=== PATIENT | female | born 1985 | race Caucasian/White ===

== ENCOUNTER 2020-04-15 16:16 | Observation (INO) ==
[2020-04-15] MEDS ORDERED: Ondansetron ODT 4 MG TAB.RAPDIS SL PRN (17:00)
[2020-04-15] MEDS ORDERED: Naloxone 0.4 MG/ML INJ IVP PRN (17:00)
[2020-04-15] MEDS ORDERED: Acetaminophen 325 MG TABLET PO PRN (18:02)
[2020-04-15] MEDS: 0.9 % Sodium Chloride 1,000 ML IVC SCH (18:54)
[2020-04-15 20:30] LABS: Basophils % 0.5 %; Eosinophils # 0.2 K/mcL (0.0-0.6); Eosinophils % 2.9 %; Hematocrit 35.9 % (35.3-44.9); Hemoglobin 11.6 g/dL (11.5-15.4); Immature Granulocytes % 0.3 % (0-4); Lymphocytes # 2.3 K/mcL (0.6-4.6); Lymphocytes % 28.8 %; Mean Corpuscular HGB Conc 32.3 g/dL (31.6-35.5); Mean Corpuscular Hemoglobin 28.5 pg (28.0-33.3); Mean Corpuscular Volume 88.2 fL (83.0-100.0); Mean Platelet Volume 10.3 fL (9.4-12.4); Monocytes # 0.6 K/mcL (0.0-1.3); Monocytes % 7.7 %; Neutrophils # 4.7 K/mcL (1.6-8.9); Platelet Count 270 K/mcL (140-400); Red Blood Count 4.07 M/mcL (3.82-4.97); Segmented Neutrophils % 59.8 %; White Blood Count 7.9 K/mcL (4.3-11.1)
[2020-04-15 21:13] LABS: Adenovirus Not Detected (Not Detect); Bordetella Pertussis Not Detected (Not Detect); Chlamydophila pneumoniae Not Detected (Not Detect); Coronavirus 229E Not Detected (Not Detect); Coronavirus HKU1 Not Detected (Not Detect); Coronavirus NL63 Not Detected (Not Detect); Coronavirus OC43 Not Detected (Not Detect); Human Metapneumovirus Not Detected (Not Detect); Human Rhinovirus/Enterovirus Not Detected (Not Detect); Influenza A Subtype 2009 H1 Not Detected (Not Detect); Influenza B Not Detected (Not Detect); Mycoplasma pneumoniae Not Detected (Not Detect); Parainfluenza Virus 1 Not Detected (Not Detect); Parainfluenza Virus 2 Not Detected (Not Detect); Parainfluenza Virus 3 Not Detected (Not Detect); Parainfluenza Virus 4 Not Detected (Not Detect); Respiratory Syncytial Virus Not Detected (Not Detect); SARS-CoV-2 Not Detected (Not Detect)
[2020-04-15] MEDS: Piperacillin/Tazobactam 3.375 GM in 0.9 % Sodium Chloride Mini Bag 100 ML IVPB SCH (23:47)
[2020-04-16] MEDS: 0.9 % Sodium Chloride 1,000 ML IVC SCH ×2 (04:29→07:00)
[2020-04-16] MEDS ORDERED: Loratadine 10 MG TABLET PO SCH (09:00)
[2020-04-16] MEDS: Piperacillin/Tazobactam 3.375 GM in 0.9 % Sodium Chloride Mini Bag 100 ML IVPB SCH ×2 (10:02→16:25)
[2020-04-16] MEDS ORDERED: polyethylene glycoL 3350 17 GM POWD.PACK PO SCH (11:00)
[2020-04-16] MEDS ORDERED: *HR* Heparin 5,000 UNIT/ML VIAL SQ SCH (11:00)
[2020-04-16] MEDS ORDERED: Ondansetron 4 MG/2 ML VIAL IVP PRN (16:48)
[2020-04-16] MEDS ORDERED: *HR* FentaNYL (PF) 100 MCG/2 ML VIAL IVP PRN (16:48)
[2020-04-16] MEDS ORDERED: Naloxone 0.4 MG/ML INJ IVP PRN ×2 (16:48→19:18)
[2020-04-16] MEDS ORDERED: *HR* HYDROmorphone PF 0.5 MG/0.5 ML SYRINGE IVP PRN (16:48)
[2020-04-16] MEDS ORDERED: *HR* Midazolam HCl 2 MG/2 ML VIAL ONE (17:11)
[2020-04-16] MEDS ORDERED: *HR* Rocuronium Bromide 50 MG/5 ML VIAL ONE (17:11)
[2020-04-16] MEDS ORDERED: Lidocaine -MPF 4% 5 ML AMPUL ONE (17:11)
[2020-04-16] MEDS ORDERED: *HR* FentaNYL (PF) 100 MCG/2 ML VIAL ONE ×2 (17:11→17:55)
[2020-04-16] MEDS ORDERED: *HR* Succinylcholine 200 MG/10 ML VIAL IVP ONE (17:11)
[2020-04-16] MEDS ORDERED: Lidocaine -MPF 2% 2 ML VIAL ONE ×2 (17:11→17:16)
[2020-04-16] MEDS ORDERED: *HR* Propofol 200 MG/20 ML VIAL IVP ONE (17:11)
[2020-04-16] MEDS ORDERED: Famotidine 20 MG/2 ML VIAL ONE (17:14)
[2020-04-16] MEDS ORDERED: Acetaminophen IV 1,000 MG/100 ML BAG IVPB ONE (17:14)
[2020-04-16] MEDS ORDERED: Dexamethasone 4 MG/ML VIAL ONE (17:33)
[2020-04-16] MEDS ORDERED: Ondansetron 4 MG/2 ML VIAL ONE (17:33)
[2020-04-16] MEDS ORDERED: EPHEDrine 50 MG/ML VIAL ONE (18:09)
[2020-04-16] MEDS ORDERED: Acetaminophen 325 MG TABLET PO PRN (19:18)
[2020-04-16] MEDS ORDERED: Ondansetron ODT 4 MG TAB.RAPDIS SL PRN (19:18)
[2020-04-16] MEDS ORDERED: *HR* HYDROcodone/Acet 5/325 mg TABLET PO PRN (19:18)
[2020-04-16 20:05] VITALS: BP 116/76
[2020-04-17] MEDS ORDERED: Piperacillin/Tazobactam 3.375 GM in 0.9 % Sodium Chloride Mini Bag 100 ML IVPB SCH
[2020-04-17] MEDS ORDERED: *HR* Heparin 5,000 UNIT/ML VIAL SQ SCH (06:00)
[2020-04-17] MEDS ORDERED: Venlafaxine XR (24 HR) 75 MG CAP.ER.24H PO SCH (09:00)
[2020-04-17] MEDS ORDERED: polyethylene glycoL 3350 17 GM POWD.PACK PO SCH (09:00)
[2020-04-17] MEDS ORDERED: Loratadine 10 MG TABLET PO SCH (09:00)
== END 2020-04-16 20:08 | disposition home or self-care (01) ==
LOC: 3ANU
PROVIDERS: ADMIT Surgery; ATTEND Surgery